=== PATIENT | female | born 1995 | race Caucasian/White ===

== ENCOUNTER 2020-06-27 02:31 | Inpatient (IN) | payer OTHER ==
[~2020-06-27] VITALS: Ht 160 cm; Wt 87.1 kg
[2020-06-27] MEDS ORDERED: TRAZ-189 PO (02:46)
[2020-06-27] MEDS ORDERED: ACETAMINOPHEN TAB 650MG DOSE (2X325MG) PO PRN (03:30)
[2020-06-27] MEDS ORDERED: MAALOX 30 ML SUSP *UDC PO PRN (03:30)
[2020-06-27] MEDS ORDERED: MOM 30ML SUSPENSION UDC PO PRN (03:30)
[2020-06-27 04:32] VITALS: BP 112/77
[2020-06-27] MEDS ORDERED: HYDR-3363 PO (05:13)
[2020-06-27] MEDS ORDERED: FLUO10CA16 PO (05:13)
[2020-06-27] MEDS ORDERED: FLUO20CA22 PO (05:13)
[2020-06-27] MEDS ORDERED: PRAZ1CAP PO (05:13)
[2020-06-27] MEDS ORDERED: LORA1TAB4 PO (05:13)
[2020-06-27] MEDS ORDERED: ONDA-83 PO (05:13)
[2020-06-27] MEDS ORDERED: ARIP1TAB PO (05:13)
[2020-06-27] MEDS ORDERED: TRAZ-252 PO (05:13)
[2020-06-27] MEDS ORDERED: VERA40TA PO (05:13)
[2020-06-27] MEDS ORDERED: PERI12LIQ (05:16)
[2020-06-27] MEDS: LORazepam 1 MG TAB PO SCH ×2 (10:05→20:26)
[2020-06-27] MEDS: FLUoxetine 20 MG CAP PO SCH (10:06)
[2020-06-27] MEDS: ARIPiprazole 10 MG TAB PO SCH (10:06)
[2020-06-27] MEDS: VERAPAMIL 40 MG TAB PO SCH ×2 (10:06→20:26)
[2020-06-27] MEDS: FLUoxetine 10 MG CAP PO SCH (10:07)
--- NOTE | 2020-06-27 12:52 | HPEPDOC ---
General Date of Admission Jun 27, 2020 at 03:21 Date of Service: Jun 27, 2020 Attending Physician: LUPE PETERSEN MD Chief Complaint The patient is a 24-year-old female admitted with a reason for visit of Unspecified Depressive Disorder. Source: Patient, RN notes reviewed Exam Limitations: No limitations Timing/Duration: Getting worse Severity: Severe Associated Symptoms: Other (depressed) History of Present Illness 24 yo W with a history of depression and anxiety who was referred to to mental health evaluation in the hospital when she was noted to have self mutilating behavior, depressed mood and expressed suicidal ideation with a plan to overdose of medications. She has a prior history of a suicide attempt as well as self harm behavior. In the ED, she expressed persistent SI without physical complaints and was admitted to the [facility] for severe depression with suicidal ideation with a plan. On my evaluation, she has a flat affect, and denies physical complaints at this time. She has not have any fevers, chills, nausea, emesis, diarrhea, constipation, chest pain, abdominal pain or cold intolerance. Internal medicine is consulted for medical evaluation. Home Medications Scheduled Aripiprazole (Aripiprazole) 10 Mg Tablet, 10 MG PO DAILY for UNKNOWN, (Reported) Chlorhexidine Gluconate (Chlorhexidine Gluconate) 473 Ml Mouthwash, 15 ML BID for UNKNOWN, (Reported) SWISH AND SPIT Fluoxetine Hcl (Fluoxetine HCl) 10 Mg Capsule, 10 MG PO DAILY for unknown, (Reported) WITH 3 OF 20MG CAPS TO =70MGS Fluoxetine Hcl (Fluoxetine HCl) 20 Mg Capsule, 60 MG PO DAILY for UNKNOWN, (Reported) TAKE WITH 10MG TO = 70MGS Hydroxyzine HCl (Hydroxyzine HCl) 25 Mg Tablet, 25 MG PO DAILY for UNKNOWN, (Reported) DO NOT TAKE BEFORE 1PM Lorazepam (Lorazepam) 1 Mg Tablet, 1 MG PO BID for unknown, (Reported) Prazosin Hcl (Prazosin HCl) 1 Mg Capsule, 1 MG PO QHS for UNKNOWN, (Reported) Trazodone HCl (Trazodone HCl) 50 Mg Tablet, 100 MG PO QHS for SLEEP, (Reported) Verapamil HCl (Verapamil HCl) 40 Mg Tablet, 40 MG PO BID for unknown, (Reported) Scheduled PRN Ondansetron HCl (Ondansetron HCl) 4 Mg Tablet, 4 MG PO BID PRN for NAUSEA, (Reported) Allergies Coded Allergies: No Known Allergies (Unverified , 06/27/20) Past Medical History Medical History Depression Anxiety Surgical History migraines Family History Significant Family History: No pertinent family hx Social History * Smoker: current smoker Alcohol: Denies Drugs: denies Recent Travel/Sick Contacts: Denies: Recent travel, Recent sick contacts Psychosocial History: Decreased mood, Depression, Prior suicide attempt, Suicidal thoughts A-FIB/CHADSVASC A-FIB History Current/History of A-Fib/PAF?: No Current PO Anticoag Therapy: No Age/Risk Factor Scoring CHADSVASC: CHADSVASC Response (Comments) Value Age Risk Factor Age < 65 years old 0 Gender Risk Factor Female 1 Hx of CHF No 0 Hx of HTN No 0 Hx of Stroke/TIA/or VTE No 0 Hx of Diabetes No 0 Hx of Vascular Disease No 0 Total 1 Treatment Treatment ordered: NONE Reason Anticoagulant not given: Not indicated/[id number] Review of Systems Constitutional: Reports: Other (obese); Denies: Chills, Fever, Night Sweats Eyes: Denies: Pain, Vision change ENT: Denies: Head Aches, Ear Pain, Dysphagia Skin: Denies: Rash, Lesions, Breakdown Pulmonary: Denies: Dyspnea, Cough Cardiovascular: Denies: Chest Pain, Palpitations, Orthopnea, Paroxysmal Noc. Dyspnea, Lt Headedness Gastrointestinal: Denies: Nausea, Vomiting, Abdominal Pain, Diarrhea Genitourinary: Denies: Dysuria, Frequency, Incontinence, Retention Hematologic: Denies: Bruising, Bleeding Excessively Endocrine: Denies: Polydipsia, Polyphagia, Polyuria, Heat Intolerance, Cold Intolerance, Other Endocrine Sx Musculoskeletal: Denies: Neck Pain, Back Pain, Joint Pain, Muscle Pain, Spasms Neurological: Denies: Weakness, Numbness, Change in speech, Confusion Psych: Reports: Depression, Thoughts of Self Harm Physical Examination General Exam: Positive: Alert, No Acute Distress, Other (obese) Eye Exam: Positive: PERRLA, Conjunctiva & lids normal, EOMI; Negative: Sclera icteric ENT Exam: Positive: Atraumatic, Mucous membr. moist/pink, Pharynx Normal Neck Exam: Positive: Supple; Negative: JVD, thyromegaly Chest Exam: Positive: Clear to auscultation, Normal air movement Heart Exam: Positive: Rate Normal, Regular Rhythm, Normal S1, Normal S2; Negative: Murmurs, Rubs Abdomen Exam: Positive: Normal bowel sounds, Soft, Other (obese); Negative: Tenderness, Hepatospenomegaly Extremity Exam: Positive: Normal pulses; Negative: Clubbing, Cyanosis, Edema Skin Exam: Positive: Nl turgor and temperature, Other skin issue (multiple proffessionally done tattoos without erythema or rashes); Negative: Breakdown, Lesion Neuro Exam: Positive: Normal Gait, Normal Speech, Cranial Nerves 3-12 NL, Reflexes 2+ Psych Exam: Positive: Mood NL (depressed mood, flat affect), Oriented x 3 Vital Signs Vital Signs Date Time Temp Pulse Resp B/P (MAP) Pulse Ox O2 Delivery O2 Flow Rate FiO2 06/27/20 10:06 88 123/70 06/27/20 04:32 97.1 16 100 Room Air Assessment/Plan 24 yo W with a history of migraine headaches, depression and anxiety who was referred for mental health evaluation in the hospital when she was noted to be self mutilating, with a depressed mood and expressed suicidal ideation with a plan to overdose of medications and is admitted to the [facility]. Plan: Depression, anxiety and suicidal thoughts: -Plan [facility] psychiatry team -Will check her TSH and free T4 that were not checked on intake at the OSH Migraine headaches: stable without ongoing headaches at this time -continue home verapamil She otherwise does not have any other acute medical issues identified at this time. Plan / VTE VTE Prophylaxis Ordered?: No VTE Exclusion Mechanical Proph: Low Risk for VTE VTE Exclusion Pharmacological: At Low Risk for VTE LUPE PETERSEN MD Jun 27, 2020 12:09
[2020-06-27 13:43] LABS: FREE T4 0.93 NG/DL (0.76-1.46); THYROID STIMULATING HORMONE 1.14 uIU/ML (0.358-3.740)
[2020-06-27 16:12] VITALS: BP 114/67
[2020-06-27] MEDS: traZODone 50 MG TAB PO PRN (20:26)
[2020-06-27] MEDS: PRAZOSIN 1 MG CAP PO SCH (20:27)
[2020-06-28 06:22] VITALS: BP 99/55
[2020-06-28] MEDS: FLUoxetine 10 MG CAP PO SCH (08:14)
[2020-06-28] MEDS: FLUoxetine 20 MG CAP PO SCH (08:14)
[2020-06-28] MEDS: LORazepam 1 MG TAB PO SCH ×2 (08:15→20:38)
[2020-06-28] MEDS: ARIPiprazole 10 MG TAB PO SCH (08:16)
[2020-06-28] MEDS: VERAPAMIL 40 MG TAB PO SCH ×2 (08:16→20:39)
[2020-06-28] MEDS ORDERED: INFLUENZA QUADRIVALENT PF VACCINE 0.5ML SYRINGE IM ONE (09:00)
--- NOTE | 2020-06-28 10:25 | MHHPEPDOC ---
[facility] History & Physical History and Physical Admit time:Jun 27, 2020 at 03:21 Subjective HPI: Betty presents today for concerns regarding her PTSD and depression. She had suicidal thoughts, and was cutting herself. She felt depressed. She was unable to get out of bed, did not want to eat, and wasnt interested in anything. She has anxiety as well. She has a history of trauma. She avoids talking to other people. She does not have a history of hearing voices that arent there. Sometimes she stays up all night doing terrible things that she would otherwise never do. Right now her suicidal thoughts are there but the urges aren't. MEDICATIONS: She is currently taking Prozac, Abilify, Ativan, Prazosin, and Trazodone. MEDICAL HISTORY: She gets mental health care, and is seeing Karrie Sánchez through [facility]. She was diagnosed with PTSD, major depressive disorder, generalized anxiety disorder, and bipolar disorder. This is not her first time in a psychiatric unit. The last time was between March and April. No major medical problems. No known allergies to medications. She had gallbladder surgery in 2019. FAMILY HISTORY: No one in her family has mental health problems that she knows of. SOCIAL HISTORY - LIVING SITUATION: She lives at [facility] [place] the [place], and she has been here for a few months now. SOCIAL HISTORY - SUBSTANCE USE: She used to try and self-soothe with alcohol and marijuana but stopped a month ago. She has never had to seek treatment for substance abuse. Objective Affect: Somewhat constricted. Cognition: Grossly intact. Thought Form: Linear and goal directed. Thought Content: No suicidal thoughts right now. No techno psychotic signs. Judgement: Fair. Insight: Fair. Assessment F43.12 Post-traumatic stress disorder, chronic F33.9 Major depressive disorder, recurrent, unspecified Plan Continue current medications and treatment. Estimated length of stay is 1-3 days. Currently, on a 9.37, legal status will extend. Vital Signs Vital Signs Date Time Temp Pulse Resp B/P (MAP) Pulse Ox O2 Delivery O2 Flow Rate FiO2 06/28/20 08:16 89 102/60 06/28/20 06:22 99.5 12 Room Air 06/27/20 04:32 100 Laboratory Data 24H Labs Laboratory Tests 2 06/27/20 12:52: Thyroid Stimulating Hormone (TSH) 1.140, Free Thyroxine 0.93 Medications Scheduled Aripiprazole (Aripiprazole) 10 Mg Tablet, 10 MG PO DAILY for UNKNOWN, (Reported) Chlorhexidine Gluconate (Chlorhexidine Gluconate) 473 Ml Mouthwash, 15 ML BID for UNKNOWN, (Reported) SWISH AND SPIT Fluoxetine Hcl (Fluoxetine HCl) 10 Mg Capsule, 10 MG PO DAILY for unknown, (Reported) WITH 3 OF 20MG CAPS TO =70MGS Fluoxetine Hcl (Fluoxetine HCl) 20 Mg Capsule, 60 MG PO DAILY for UNKNOWN, (Reported) TAKE WITH 10MG TO = 70MGS Hydroxyzine HCl (Hydroxyzine HCl) 25 Mg Tablet, 25 MG PO DAILY for UNKNOWN, (Reported) DO NOT TAKE BEFORE 1PM Lorazepam (Lorazepam) 1 Mg Tablet, 1 MG PO BID for unknown, (Reported) Prazosin Hcl (Prazosin HCl) 1 Mg Capsule, 1 MG PO QHS for UNKNOWN, (Reported) Trazodone HCl (Trazodone HCl) 50 Mg Tablet, 100 MG PO QHS for SLEEP, (Reported) Verapamil HCl (Verapamil HCl) 40 Mg Tablet, 40 MG PO BID for unknown, (Reported) Scheduled PRN Ondansetron HCl (Ondansetron HCl) 4 Mg Tablet, 4 MG PO BID PRN for NAUSEA, (Reported) Allergies Coded Allergies: No Known Allergies (Unverified , 06/27/20) IRAM ACUÑA DO Jun 28, 2020 10:25
[2020-06-28 16:12] VITALS: BP 133/67
[2020-06-28] MEDS: PRAZOSIN 1 MG CAP PO SCH (20:38)
[2020-06-28] MEDS: traZODone 50 MG TAB PO PRN (20:38)
[2020-06-29 06:25] VITALS: BP 120/72
[2020-06-29] MEDS: VERAPAMIL 40 MG TAB PO SCH ×2 (08:05→20:45)
[2020-06-29] MEDS: ARIPiprazole 10 MG TAB PO SCH (08:05)
[2020-06-29] MEDS: FLUoxetine 10 MG CAP PO SCH (08:05)
[2020-06-29] MEDS: FLUoxetine 20 MG CAP PO SCH (08:06)
[2020-06-29] MEDS: LORazepam 1 MG TAB PO SCH (08:06)
--- NOTE | 2020-06-29 11:18 | MHIPNPDOC ---
[facility] Progress Note Progress Note DATE OF SERVICE: 06/28/20 Subjective HPI: Betty presents today for concerns regarding her mood and anxious around others. SOCIAL HISTORY - LIVING SITUATION: She can tolerate one-on-one meetings with her nurse, but reports otherwise, she feels anxious around others. She stayed in her bed majority of the day and still feeling depressed. Objective Appearance: Hygiene - Fair. Speech: Monotone. Cognition: Grossly intact. Thought Form: Linear and goal directed. Thought Content: No evidence of aggressive or homicidal ideation. Intermittent passive suicidal thoughts. Perception: No perceptual abnormalities noted. Judgement: Poor-Fair. Insight: Poor-Fair. Assessment F43.12 Post-traumatic stress disorder, chronic Plan Continue medications, likely will need alterations on the complex medication regiment, as there has not been a positive response to medications yet. Vital Signs Vital Signs Date Time Temp Pulse Resp B/P (MAP) Pulse Ox O2 Delivery O2 Flow Rate FiO2 06/29/20 08:05 75 120/72 06/29/20 06:25 97.9 14 100 Room Air Current Medications Current Medications Medications (Trade) Dose Ordered Sig/Bessie Route PRN Reason Start Time Stop Time Status Last Admin Dose Admin Acetaminophen (Tylenol Tab) 650 mg Q6HP PRN PO HEADACHE or DISCOMFORT 06/27/20 03:30 Al Hydrox/Mg Hydrox/Simethicone (Mylanta) 30 ml Q4HP PRN PO HEARTBURN/INDIGESTION 06/27/20 03:30 Aripiprazole (AbiLIFY) 10 mg DAILY PO 06/27/20 09:00 06/29/20 08:05 Fluoxetine HCl (PROzac) 10 mg DAILY PO 06/27/20 09:00 06/29/20 08:05 Fluoxetine HCl (PROzac) 60 mg DAILY PO 06/27/20 09:00 06/29/20 08:06 Home Med (Med Rec Complete!) ASDIRECTED XX 06/27/20 03:30 06/27/20 03:27 DC Home Med (Med Rec Complete!) ASDIRECTED XX 06/27/20 05:30 06/27/20 05:17 DC Lorazepam (Ativan) 1 mg BID PO 06/27/20 09:00 06/29/20 08:06 Magnesium Hydroxide (Milk Of Magnesia) 30 ml DAILYPRN PRN PO CONSTIPATION 06/27/20 03:30 Prazosin HCl (Minipress) 1 mg QHS PO 06/27/20 21:00 06/28/20 20:38 Trazodone HCl (Desyrel) 50 mg QHSP PRN PO INSOMNIA 06/27/20 03:30 06/28/20 20:38 Verapamil HCl (Calan) 40 mg BID PO 06/27/20 09:00 06/29/20 08:05 Allergies Coded Allergies: No Known Allergies (Unverified , 06/27/20) IRAM ACUÑA DO Jun 29, 2020 11:17
--- NOTE | 2020-06-29 11:18 | MHIPNPDOC ---
[facility] Progress Note Progress Note DATE OF SERVICE: 06/29/20 Subjective HPI: Betty presents today for a follow up. She notes to have a fear of being around many people. She also states that if she doesnt socialize and chooses to isolate herself, then her mood tends to get worse. Objective Appearance: Fair hygiene. Poor eye contact. Behavior: Patient is still dysthymic and constricted. Cognition: Alert, Attentive, and Oriented to person, place, time. Grossly int act. Thought Content: No evidence of aggressive or homicidal ideation. No thoughts of self harm. She reports improving suicidal thoughts. No evidence of delusions. Judgement: Poor to fair. Insight: Poor to fair. Assessment F43.12 Post-traumatic stress disorder, chronic Plan Continue expressive therapy treatment with Prozac 70 mg, Abilify, and Lorazepam at this time. She is making progress, perhaps reactivation vs. adjustment at this time rather than acute PTSD recurrence. Vital Signs Vital Signs Date Time Temp Pulse Resp B/P (MAP) Pulse Ox O2 Delivery O2 Flow Rate FiO2 06/29/20 08:05 75 120/72 06/29/20 06:25 97.9 14 100 Room Air Current Medications Current Medications Medications (Trade) Dose Ordered Sig/Bessie Route PRN Reason Start Time Stop Time Status Last Admin Dose Admin Acetaminophen (Tylenol Tab) 650 mg Q6HP PRN PO HEADACHE or DISCOMFORT 06/27/20 03:30 Al Hydrox/Mg Hydrox/Simethicone (Mylanta) 30 ml Q4HP PRN PO HEARTBURN/INDIGESTION 06/27/20 03:30 Aripiprazole (AbiLIFY) 10 mg DAILY PO 06/27/20 09:00 06/29/20 08:05 Fluoxetine HCl (PROzac) 10 mg DAILY PO 06/27/20 09:00 06/29/20 08:05 Fluoxetine HCl (PROzac) 60 mg DAILY PO 06/27/20 09:00 06/29/20 08:06 Home Med (Med Rec Complete!) ASDIRECTED XX 06/27/20 03:30 06/27/20 03:27 DC Home Med (Med Rec Complete!) ASDIRECTED XX 06/27/20 05:30 06/27/20 05:17 DC Lorazepam (Ativan) 1 mg BID PO 06/27/20 09:00 06/29/20 08:06 Magnesium Hydroxide (Milk Of Magnesia) 30 ml DAILYPRN PRN PO CONSTIPATION 06/27/20 03:30 Prazosin HCl (Minipress) 1 mg QHS PO 06/27/20 21:00 06/28/20 20:38 Trazodone HCl (Desyrel) 50 mg QHSP PRN PO INSOMNIA 06/27/20 03:30 06/28/20 20:38 Verapamil HCl (Calan) 40 mg BID PO 06/27/20 09:00 06/29/20 08:05 Allergies Coded Allergies: No Known Allergies (Unverified , 06/27/20) IRAM ACUÑA DO Jun 29, 2020 11:18
[2020-06-29 17:42] VITALS: BP 110/70
[2020-06-29] MEDS: traZODone 50 MG TAB PO PRN (20:45)
[2020-06-29] MEDS: LORazepam 1 MG TAB PO PRN (20:45)
[2020-06-29] MEDS: PRAZOSIN 1 MG CAP PO SCH (20:46)
[2020-06-30] MEDS: VERAPAMIL 40 MG TAB PO SCH ×2 (08:13→20:17)
[2020-06-30] MEDS: FLUoxetine 10 MG CAP PO SCH (08:13)
[2020-06-30] MEDS: ARIPiprazole 10 MG TAB PO SCH (08:13)
[2020-06-30] MEDS: FLUoxetine 20 MG CAP PO SCH (08:14)
--- NOTE | 2020-06-30 10:47 | MHIPNPDOC ---
[facility] [place] Progress Note DATE OF SERVICE: 06/30/20 Subjective HPI: Betty presents today for concerns regarding a follow up. She states that she is feeling okay. She notes that she hasnt had any suicidal thoughts, but the last time she had thoughts was yesterday morning. Objective Appearance: Well groomed. Well nourished. Appears to be stated age. Affect: More euthymic. Full range. Appropriate to context. Speech: Normal rate. Normal volume. More fluid. Associations intact. Cognition: Grossly intact. Alert, Attentive, and Oriented to person, place, time. Thought Form: Linear and goal directed. Thought Content: No thoughts of self harm. No evidence of suicidal ideation. No evidence of aggressive or homicidal ideation. No evidence of delusions. Judgement: Improved. Intact as evidenced by decision making in the recent past. Insight: Good insight into symptoms and treatment options. Improved. Assessment F43.12 Post-traumatic stress disorder, chronic Plan Continue medications as current. Making good progress. Well likely discharge on after observation groups appear to be helpful. Likely to see more adjustment and loneliness than overt acute PTSD relapse. Vital Signs Vital Signs Date Time Temp Pulse Resp B/P (MAP) Pulse Ox O2 Delivery O2 Flow Rate FiO2 06/30/20 08:13 82 120/72 06/29/20 17:42 97.4 18 100 Room Air Current Medications Current Medications Medications (Trade) Dose Ordered Sig/Bessie Route PRN Reason Start Time Stop Time Status Last Admin Dose Admin Acetaminophen (Tylenol Tab) 650 mg Q6HP PRN PO HEADACHE or DISCOMFORT 06/27/20 03:30 Al Hydrox/Mg Hydrox/Simethicone (Mylanta) 30 ml Q4HP PRN PO HEARTBURN/INDIGESTION 06/27/20 03:30 Aripiprazole (AbiLIFY) 10 mg DAILY PO 06/27/20 09:00 06/30/20 08:13 Fluoxetine HCl (PROzac) 10 mg DAILY PO 06/27/20 09:00 06/30/20 08:13 Fluoxetine HCl (PROzac) 60 mg DAILY PO 06/27/20 09:00 06/30/20 08:14 Home Med (Med Rec Complete!) ASDIRECTED XX 06/27/20 03:30 06/27/20 03:27 DC Home Med (Med Rec Complete!) ASDIRECTED XX 06/27/20 05:30 06/27/20 05:17 DC Lorazepam (Ativan) 1 mg BID PO 06/27/20 09:00 06/29/20 17:55 DC 06/29/20 08:06 Lorazepam (Ativan) 1 mg TIDP PRN PO ANXIETY 06/29/20 18:00 06/29/20 20:45 Magnesium Hydroxide (Milk Of Magnesia) 30 ml DAILYPRN PRN PO CONSTIPATION 06/27/20 03:30 Prazosin HCl (Minipress) 1 mg QHS PO 06/27/20 21:00 06/29/20 20:46 Trazodone HCl (Desyrel) 50 mg QHSP PRN PO INSOMNIA 06/27/20 03:30 06/29/20 20:45 Verapamil HCl (Calan) 40 mg BID PO 06/27/20 09:00 06/30/20 08:13 Allergies Coded Allergies: No Known Allergies (Unverified , 06/27/20) IRAM ACUÑA DO Jun 30, 2020 10:47
[2020-06-30] MEDS: LORazepam 1 MG TAB PO PRN (12:39)
[2020-06-30 18:09] VITALS: BP 115/60
[2020-06-30] MEDS: traZODone 50 MG TAB PO PRN (20:17)
[2020-06-30] MEDS: PRAZOSIN 1 MG CAP PO SCH (20:18)
[2020-07-01 07:00] VITALS: BP 101/59
[2020-07-01] MEDS: FLUoxetine 10 MG CAP PO SCH (08:13)
[2020-07-01] MEDS: ARIPiprazole 10 MG TAB PO SCH (08:13)
[2020-07-01] MEDS: FLUoxetine 20 MG CAP PO SCH (08:13)
[2020-07-01] MEDS: VERAPAMIL 40 MG TAB PO SCH ×2 (08:14→20:29)
--- NOTE | 2020-07-01 09:09 | MHIPNPDOC ---
[facility] Progress Note Progress Note DATE OF SERVICE: 07/01/20 Subjective HPI: Betty presents today for concerns regarding a follow up on her discharge for tomorrow. She notes that she still feels good about a discharge for tomorrow. She states that her suicidal thoughts are not there. She reports that the groups have been okay. She denies any side effects, such as shakiness or dizziness from her medication. Objective Appearance: Appears to be stated age. Well nourished. Well groomed. Behavior: Engaged. Pleasant. Cooperative with good eye contact. Affect: Full range. Appropriate to context. Mood: Euthymic. Generally good. Appropriately reactive. Speech: Normal volume. Normal rate. Spontaneous and Fluid. Motor: No gross motor abnormalities. Cognition: Alert, Attentive, and Oriented to person, place, time. Memory: No gross abnormalities of short or longterm memory noted during interview. No formal testing. Thought Form: Linear and goal directed. Thought Content: No thoughts of self harm. No evidence of suicidal ideation. No evidence of delusions. No evidence of aggressive or homicidal ideation. Perception: No perceptual abnormalities noted. Judgement: Intact as evidenced by decision making in the recent past. Insight: Good insight into symptoms and treatment options. Assessment F43.12 Post-traumatic stress disorder, chronic Plan Continue medications. Plans to discharge patient tomorrow. Patient doing well. Vital Signs Vital Signs Date Time Temp Pulse Resp B/P (MAP) Pulse Ox O2 Delivery O2 Flow Rate FiO2 07/01/20 08:14 79 101/59 07/01/20 07:00 97.6 14 98 06/29/20 17:42 Room Air Current Medications Current Medications Medications (Trade) Dose Ordered Sig/Bessie Route PRN Reason Start Time Stop Time Status Last Admin Dose Admin Acetaminophen (Tylenol Tab) 650 mg Q6HP PRN PO HEADACHE or DISCOMFORT 06/27/20 03:30 Al Hydrox/Mg Hydrox/Simethicone (Mylanta) 30 ml Q4HP PRN PO HEARTBURN/INDIGESTION 06/27/20 03:30 Aripiprazole (AbiLIFY) 10 mg DAILY PO 06/27/20 09:00 07/01/20 08:13 Fluoxetine HCl (PROzac) 10 mg DAILY PO 06/27/20 09:00 07/01/20 08:13 Fluoxetine HCl (PROzac) 60 mg DAILY PO 06/27/20 09:00 07/01/20 08:13 Home Med (Med Rec Complete!) ASDIRECTED XX 06/27/20 03:30 06/27/20 03:27 DC Home Med (Med Rec Complete!) ASDIRECTED XX 06/27/20 05:30 06/27/20 05:17 DC Lorazepam (Ativan) 1 mg BID PO 06/27/20 09:00 06/29/20 17:55 DC 06/29/20 08:06 Lorazepam (Ativan) 1 mg TIDP PRN PO ANXIETY 06/29/20 18:00 06/30/20 12:39 Magnesium Hydroxide (Milk Of Magnesia) 30 ml DAILYPRN PRN PO CONSTIPATION 06/27/20 03:30 Prazosin HCl (Minipress) 1 mg QHS PO 06/27/20 21:00 06/30/20 20:18 Trazodone HCl (Desyrel) 50 mg QHSP PRN PO INSOMNIA 06/27/20 03:30 06/30/20 20:17 Verapamil HCl (Calan) 40 mg BID PO 06/27/20 09:00 07/01/20 08:14 Allergies Coded Allergies: No Known Allergies (Unverified , 06/27/20) IRAM ACUÑA DO Jul 01, 2020 09:08
[2020-07-01] MEDS: LORazepam 1 MG TAB PO PRN ×2 (11:53→20:29)
[2020-07-01 17:31] VITALS: BP 98/60
[2020-07-01] MEDS: traZODone 50 MG TAB PO PRN (20:29)
[2020-07-01] MEDS: PRAZOSIN 1 MG CAP PO SCH (20:29)
[2020-07-02 06:32] VITALS: BP 102/51
[2020-07-02] MEDS: LORazepam 1 MG TAB PO PRN (08:46)
[2020-07-02 08:48] VITALS: BP 118/75
[2020-07-02] MEDS: VERAPAMIL 40 MG TAB PO SCH (08:48)
[2020-07-02] MEDS: FLUoxetine 20 MG CAP PO SCH (08:49)
[2020-07-02] MEDS: FLUoxetine 10 MG CAP PO SCH (08:49)
[2020-07-02] MEDS: ARIPiprazole 10 MG TAB PO SCH (08:49)
--- NOTE | 2020-07-02 10:06 | MHDSPDOC ---
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 She did generally well when she first came. Patient was systemic and had some suicidal thoughts. She had engaged in some cutting behaviors prior to coming in. She was encouraged to attend groups as it was not clear whether adjustment was the primary motivating factor in her presentation. She did well and made a good improvement after starting to go to groups more frequently and socialize which caused her depr ession to vanish. Primarily she had some minor PTSD symptoms of avoidance, however, ultimately her depressive symptoms were a result of that much incident suggesting primarily adjustment. She had recently moved into [facility], which could have been a provoking factor. Patient had no major behavioral problems and was amenable to staff interventions. MEDICATIONS: Patient was restarting her complex whole medication such as Abilify, Ativan, and others with some positive effect. MEDICAL HISTORY: Patient was admitted to the inpatient mental health unit after reportedly becoming suicidal. She primarily is hospitalized [facility] and is a [facility] resident. DISCHARGE ASSESSMENT[improved][stable][unchanged] Legal status considerations: The patient at the time of discharge did not meet criteria for involuntary admission/extension due to having a [normal] mental status exam, [fair] insight into the situation, They are engaged in the discharge process, as well as being friendly and amenable in behavioral control and havent been engaging in any observed concerning behavior or ideation recently. They decline voluntary extension/admission at this time and must be discharged in good josé luis, as Im unable to make a case for holding the patient against their will. They may have historical risk factors of admissions and other interactions with psychiatry however, those are not modifiable from a clinical perspective. The patient will need to be discharged in good josé luis. MENTAL STATUS EXAMINATION ON DISCHARGE: [General: Well dressed with good hygiene Speech: Spontaneous and fluid Thought processes: Linear and logical Thought content: Future orientated Abstract reasoning, and computation: Intact Description of associations: Intact Description of abnormal or psychotic thoughts:Denies any suicidal or homicidal ideation. Denies any auditory or visual hallucinations. Does not appear to be responding to internal stimuli. Does not appear to be endorsing any bizarre or paranoid ideation. Judgment: fair Insight: fair Orientation: Alert and orientated 3 Recent and remote memory: Intact Attention span and concentration: Intact Fund of knowledge: Adequate Mood: "okay" Affect: Euthymic with a full range] PLAN/FOLLOWUP ARRANGEMENTS: Follow up appointments made (PCP and MH in 5 days of D/C date) and safety plan completed. Safety Planning aspects completed prior to discharge [RN reviewed crisis hotline information and other aspects to empower patient to access care in interim before next appointment.] The amount of time spent in the coordination of care for this patient was approximately 30 minutes. Vital Signs/I&Os Vital Signs Date Time Temp Pulse Resp B/P (MAP) Pulse Ox O2 Delivery O2 Flow Rate FiO2 07/02/20 08:48 102 118/75 07/02/20 06:32 97.7 18 07/01/20 07:00 98 06/29/20 17:42 Room Air Medications Scheduled Aripiprazole (Aripiprazole) 10 Mg Tablet, 10 MG PO DAILY for UNKNOWN, (Reported) Chlorhexidine Gluconate (Chlorhexidine Gluconate) 473 Ml Mouthwash, 15 ML BID for UNKNOWN, (Reported) SWISH AND SPIT Fluoxetine Hcl (Fluoxetine HCl) 10 Mg Capsule, 10 MG PO DAILY for unknown, (Reported) WITH 3 OF 20MG CAPS TO =70MGS Fluoxetine Hcl (Fluoxetine HCl) 20 Mg Capsule, 60 MG PO DAILY for UNKNOWN, (Reported) TAKE WITH 10MG TO = 70MGS Hydroxyzine HCl (Hydroxyzine HCl) 25 Mg Tablet, 25 MG PO DAILY for UNKNOWN, (Reported) DO NOT TAKE BEFORE 1PM Lorazepam (Lorazepam) 1 Mg Tablet, 1 MG PO BID for unknown, (Reported) Prazosin Hcl (Prazosin HCl) 1 Mg Capsule, 1 MG PO QHS for UNKNOWN, (Reported) Trazodone HCl (Trazodone HCl) 50 Mg Tablet, 100 MG PO QHS for SLEEP, (Reported) Verapamil HCl (Verapamil HCl) 40 Mg Tablet, 40 MG PO BID for unknown, (Reported) Scheduled PRN Ondansetron HCl (Ondansetron HCl) 4 Mg Tablet, 4 MG PO BID PRN for NAUSEA, (Reported) Allergies Coded Allergies: No Known Allergies (Unverified , 06/27/20) IRAM ACUÑA DO Jul 02, 2020 10:06
== END 2020-07-02 11:30 | disposition home or self-care (01) | DRG 755 ==
LOC: M ED 02:31 → M ED INP 03:21 → M PSY 03:55
PROVIDERS: ADMIT Psychiatry & Neurology Addiction Medicine; ATTEND Psychiatry & Neurology Addiction Medicine
DX: F43.12 Post-traumatic stress disorder, chronic (principal); F33.9 Major depressive disorder, recurrent, unspecified; R45.851 Suicidal ideations; Z79.899 Other long term (current) drug therapy